=== PATIENT | male | born 1985 | race Caucasian/White ===

== ENCOUNTER 2024-04-26 01:04 | Day surgery (SDC) | payer BC, SELFPAY ==
[2023-12-12 14:20] VITALS: BMI 26.4
--- NOTE | 2023-12-29 08:49 | SUR.PREOP ---
Patient called and left a message to say he needs to reschedule due to head cold.
[2024-04-13 15:17] VITALS: BMI 26.4
[2024-04-26 06:43] VITALS: BP 144/87; PULSE 79; RESP 18; TEMP 36.2; O2SAT 99
[2024-04-26] MEDS: LACTATED RINGERS 1,000 ML 150 ML IV CONT (06:56)
--- NOTE | 2024-04-26 07:25 | P.PNAN_ITS ---
Anes - Initial Pre Proc Eval Procedure: Operation Date: 12/29/23 10:30 Proposed Procedures p Screening Colonoscopy - Harinder Turpin MD Operation Date: 04/26/24 08:00 Proposed Procedures p Screening Colonoscopy - Harinder Turpin MD Date/Time: 04/26/24 07:25 Surgeon: Harinder Turpin MD Pre Op Diagnosis: family hx colon ca Patient Data Age: 39 Gender: M Height: 1.75 m Weight: 79.8 kg Last Vital Signs Temp 97.2 F L 04/26/24 06:43 Pulse 79 04/26/24 06:43 Resp 18 04/26/24 06:43 BP 144/87 H 04/26/24 06:43 Pulse Ox 99 04/26/24 06:43 O2 Del Method Room Air 04/26/24 06:43 Allergies Allergy/AdvReac Type Severity Reaction Status Date / Time No Known Allergies Allergy Verified 04/26/24 06:42 Home Medications Medication Instructions Recorded Confirmed Type No Home Medications 12/14/20 12/12/23 History Patient hx anesthesia problems: none Family hx anesthesia problems: none Results Review: All pre-operative results and documents have been reviewed as part of the pre- operative evaluation. [facility] Past Medical History Medical History Chronic pain of left knee Family History Family History Grandparent Family history of alcoholism Mother Carcinoma of colon Other Family history of malignant neoplasm Social History Social History Smoking status: Never smoker Alcohol intake: current Drinks per week: 3 Substance use: never Substance use type: does not use Living arrangements: with family Additional living arrangements comments: and daughter Occupation/Education: occupation Gender identity (if verbalized by the patient): Male Sexual Orientation (if Verbalized by the Patient): Straight or Heterosexual Spiritual care concerns: No Anes - Eval Final PreProcedure Day of Procedure 04/26/24 07:25 Patient weight: normal Heart: regular rate and rhythm Lungs: clear to auscultation Airway: Mallampati scale class II Neurological: alert and oriented Last oral intake: >/= 8 hours ASA classification: II Emergent: no Anesthetic plan: proceed Anesthesia type and monitoring: general GIVS and standard monitoring Results Review: All pre-operative results and documents have been reviewed as part of the pre- operative evaluation. Informed Consent: The patient's anesthetic plan and its attendant risks and benefits were discussed with the patient/family/POA. Questions were solicited and answers provided to the satisfaction of the patient/family/POA.
--- NOTE | 2024-04-26 07:57 | PM.HPGS ---
History of Present Illness History of Present Illness Consent: Risks, benefits, and alternatives have been discussed and questions answered. Patient agrees to proceed with procedure. Chief complaint: family hx colon ca Narrative: Amrit Roy is a 39 year old male here for second colonoscopy, last one 5 years ago, mother had colon cancer Review of Systems Review of Systems: All systems reviewed & are unremarkable except as noted in HPI and below PMFSH Past Medical History Medical History (Updated 04/26/24 @ 07:59 by Harinder Turpin MD) Chronic pain of left knee Family history of colon cancer in mother Family History Family History Grandparent Family history of alcoholism Mother Carcinoma of colon Other Family history of malignant neoplasm Social History Social History Smoking status: Never smoker Alcohol intake: current Drinks per week: 3 Substance use: never Substance use type: does not use Living arrangements: with family Additional living arrangements comments: and daughter Occupation/Education: occupation Gender identity (if verbalized by the patient): Male Sexual Orientation (if Verbalized by the Patient): Straight or Heterosexual Spiritual care concerns: No Meds Home Medications and Allergies Home Medications Medication Instructions Recorded Confirmed Type No Home Medications 12/14/20 12/12/23 History Allergies Allergy/AdvReac Type Severity Reaction Status Date / Time No Known Allergies Allergy Verified 04/26/24 07:40 Vital Signs Vital Signs - 24 hr 04/26/24 06:43 Temperature 97.2 F L Pulse Rate 79 Respiratory Rate 18 Blood Pressure 144/87 H Pulse Oximetry 99 Oxygen Delivery Room Air Exam Const: General: comfortable and no acute distress HENMT: Face/Nose/Sinus: Normal nares present Eyes: General: appearance normal, both eyes and all related structures Neck: Neck: no JVD Resp: Auscultation: clear to auscultation bilaterally Cardio: Rate: regular rate Rhythm: regular rhythm GI: Inspection: non-distended GI Palp: Yes Soft to palpation Skin: General skin exam: normal color Neuro: General: gait normal Speech: normal speech Extrem: General: normal to inspection Psych: Mental Status: mental status grossly normal Assessment and Plan Assessment and plan (1) Family history of colon cancer in mother: Code(s): Z80.0 - Family history of malignant neoplasm of digestive organs Status: Acute Assessment and Plan: colonoscopy
[2024-04-26 08:15] VITALS: BP 119/62; PULSE 82; RESP 20; O2SAT 97
[2024-04-26 08:25] VITALS: BP 116/77; PULSE 66; RESP 21; O2SAT 98
[2024-04-26 08:35] VITALS: BP 123/84; PULSE 65; RESP 17; O2SAT 97
== END 2024-04-26 08:40 | disposition home or self-care (01) ==
PROVIDERS: PCP Internal Medicine; Visit Provider Internal Medicine Gastroenterology
PROC: 0DJD8ZZ Inspection of Lower Intestinal Tract, Via Natural or Artificial Opening Endoscopic (ICD-10-PCS; CPT 45378; principal; 2024-04-26 08:00)
DX: Z12.11 Encounter for screening for malignant neoplasm of colon (principal); K64.8 Other hemorrhoids; G89.29 Other chronic pain; M25.562 Pain in left knee; Z80.0 Family history of malignant neoplasm of digestive organs
CPT/HCPCS: 45378; J2704; J7120